=== PATIENT | female | born 1995 | race Caucasian/White ===

== ENCOUNTER 2024-05-10 07:05 | Emergency (ER) | payer MEDICAID, SELFPAY ==
--- NOTE | ~2024-05-10 | XR_ITS ---
EXAMINATION: XR CHEST CLINICAL INFORMATION: dyspnea COMPARISON: None available. TECHNIQUE: Frontal view of the chest was obtained. FINDINGS: No significant abnormality is noted involving the heart, lungs, mediastinum, bony thorax or soft tissues. XR/XR chest 1V IMPRESSION: Normal chest. Electronically signed by: Sudhir Perez MD 05/10/2024 08:16 AM [facility]
[2024-05-10 07:19] VITALS: BP 134/85; PULSE 95; RESP 20; TEMP 36.6; O2SAT 95; BMI 28.9
--- NOTE | 2024-05-10 07:25 | ECG_ITS ---
Test Reason : cp Blood Pressure : */* mmHG Vent. Rate : 89 BPM Atrial Rate : 89 BPM P-R Int : 148 ms QRS Dur : 88 ms QT Int : 368 ms P-R-T Axes : 42 64 42 degrees QTcB Int : 447 ms Normal sinus rhythm with sinus arrhythmia Normal ECG No previous ECGs available Referred By: Generic ED Physician Electronically Signed By: DARSHAN CABALLERO MD
[2024-05-10 07:42] LABS: MANUAL DIFF FLAG NO
[2024-05-10 07:55] LABS: Basophils Absolute Auto 0.1 X10*3/uL (0.0-0.2); Basophils Percent Auto 0.8 % (0-2); Eosinophils Absolute Auto 0.8 X10*3/uL (0.0-0.4); Eosinophils Percent Auto 10.5 % (0-4); Hematocrit 38.6 % (37.0-47.0); Hemoglobin 12.8 g/dl (12.0-16.0); Imm Gran Abs Auto 0.07 X10*3/uL (0.00-0.03); Imm Gran Pct Auto 0.9 % (0.0-0.4); Lymphocytes Absolute Auto 2.4 X10*3/uL (1.2-4.9); Lymphocytes Percent Auto 30.9 % (20-40); Mean Corpuscular HGB Conc 33.2 g/dl (31.0-35.0); Mean Corpuscular Hemoglobin 28.2 pg (27.0-33.0); Mean Platelet Volume 9.7 fL (9.4-12.3); Monocytes Absolute Auto 0.5 X10*3/uL (0.1-1.2); Monocytes Percent Auto 5.9 % (2-11); Platelet Count 387 X10*3/uL (160-400); Red Blood Count 4.54 X10*6/uL (4.20-5.50); White Blood Count 7.8 X10*3/uL (4.8-10.8)
[2024-05-10 08:11] LABS: Alanine Aminotransferase 29 U/L (0-31); Albumin Level 4.3 g/dL (3.5-5.0); Alkaline Phosphatase 77 U/L (39-117); Anion Gap 13 (12-20); Aspartate Amino Transferase 26 U/L (5-31); Bilirubin Direct 0.1 mg/dL (0.0-0.5); Bilirubin Total 0.4 mg/dL (0.0-1.0); Blood Urea Nitrogen 16 mg/dL (9-16); Calcium 9.1 mg/dL (8.4-10.2); Carbon Dioxide 22 mmol/L (22-29); Chloride 108 mmol/L (96-108); Creatinine Clr Calc Pharmacy 135.2; Estimated Glomerular Filt Rate > 60; Glucose Random 90 mg/dL (60-115); Lipase 15 U/L (8-78); Potassium 3.7 mmol/L (3.3-5.1); Sodium 139 mmol/L (135-145); Total Protein 7.6 g/dL (6.5-8.0)
[2024-05-10 08:22] LABS: Troponin-I High Sensitivity < 2.7 ng/L (<3.5-17.0)
[2024-05-10 08:31] LABS: Influenza A PCR NEGATIVE (Negative); Influenza B PCR NEGATIVE (Negative); Resp Syncy Virus RNA Qual PCR NEGATIVE (Negative); SARS COV2 PCR INHOUSE NEGATIVE (Negative)
[2024-05-10] MEDS: Albuterol Sulfate 2.5 MG, Albuterol/Iprat 2.5/0.5MG 3 ML 3 ML INHALE (15:23)
[2024-05-10 15:25] VITALS: PULSE 93; RESP 18; O2SAT 95
[2024-05-10] MEDS: predniSONE 10 MG TABLET 50 MG PO (15:30)
--- NOTE | 2024-05-10 15:32 | ED_ITS ---
HPI - SOB/Dyspnea General Chief Complaint: Dyspnea Stated Complaint: Asthma Diff Breathing Time Seen by Provider: 05/10/24 14:40 Source: patient and RN notes reviewed Mode of arrival: ambulatory Limitations: no limitations History of Present Illness ED Provider: Indy Copeland PA-C HPI Narrative: This is a 28-year-old female, with a history of asthma, who presents emergency department with concerns for shortness of breath and chest tightness for the last 2 days. Patient also endorses some nasal congestion. She denies any recent travel, surgery, hospitalizations, no history of blood clots. She denies any pleuritic chest pain. She states that the chest pain is constant and worsens with movement, and with coughing. She states that she has been using in her her inhaler at home which has provided her with some relief. She is not on control. She is a nonsmoker. Denies any fevers, chills, severe shortness of breath, severe chest pain, lower extremity swelling. Denies any palpitations. Denies any abdominal pain, nausea, vomiting or diarrhea. Denies chance of . No urinary symptoms. No other complaints or concerns at this time. MD elicited complaint: asthma attack Pertinent past history: asthma Timing: constant Severity: moderate Exacerbating factors: nothing Relieving factors: nothing Known history of: asthma Associated symptoms: chest pain, cough and wheezing Related Data Previous Rx's ?Medication ?Instructions ?Recorded prednisone 20 mg tablet 40 mg (2 x 20 mg) PO DAILY 4 days 05/10/24 #8 tabs Allergies Allergy/AdvReac Type Severity Reaction Status Date / Time No Known Allergies Allergy Verified 05/10/24 07:22 Review of Systems 2 Review of Systems: Yes all other systems are reviewed and are negative Constitutional: Constitutional: Reports as per [facility] Social History Social History Advance Directives: No Advance Directives Information Provided: Yes Do you have a plan to hurt others: No Plan Physical Exam 2 Vital Signs: Vital Signs: Last Vital Signs Temp 98.0 F 05/10/24 16:24 Pulse 82 05/10/24 16:24 Resp 12 05/10/24 16:24 BP 128/96 H 05/10/24 16:24 Pulse Ox 97 05/10/24 16:24 O2 Del Method Room Air 05/10/24 16:24 BMI result Body Mass Index 28.9 Const: General: cooperative, comfortable and no acute distress O rientation/consciousness: patient oriented x3 Limitations: no limitations HEENT: Head: Yes normal to inspection, Yes normocephalic and Yes atraumatic Ears: hearing grossly normal bilaterally and TM's normal bilaterally General nose exam: Normal external nose present Face and sinus: Yes normal facial exam Mouth: Normal oral and palatal mucosa present, oropharynx normal and moist mucous membranes Throat: Yes posterior oropharynx normal Eyes: General: appearance normal, both eyes and all related structures E yelids: Yes eyelids normal Conjunctivae: conjunctivae normal Sclerae: s clerae normal Pupils: Equal, round and reactive pupils present EOM: EOMs intact bilaterally Neck: Neck: Yes normal visual inspection, Yes full ROM and Yes no lymphadenopathy Lymphatic: no lymphadenopathy noted Chest: Chest palpation & inspection: normal inspection of the chest Resp: Other: Inspiratory and expiratory wheezes noted, worse in the right lower lung field. No crackles or rales Effort & Inspection: normal respiratory effort and able to speak in complete sentences Cardio: Rate: regular rate Rhythm: regular rhythm Heart sounds: S1 normal heart sound present and S2 normal heart sound present GI: Inspection: Yes normal to inspection Skin: General skin exam: no rashes or lesions noted Trauma: no lacerations or abrasions Wounds: no wounds Neuro: General: patient oriented x3 and moves all extremities Cranial nerves: Yes Equal, round and reactive pupils present Extrem: Other: No lower extremity swelling, no calf tenderness. General: Yes normal to inspection Right upper extremity: normal to inspection Left upper extremity: normal to inspection Right lower extremity: normal to inspection Left lower extremity: normal to inspection Course Reevaluation(s) Reevaluation #1: Patient reassessed, inspiratory and expiratory wheezes cleared however will administer updrafts, and administer prednisone. Will continue to monitor pending symptomatic improvement. Time: 15:34 Reevaluation #2: Patient reassess, she has been eating better after receiving updraft. Lungs clear to auscultation. Vital signs within normal limits. She is speaking full sentences under no acute respiratory distress. Symptoms consistent with acute asthma exacerbation. She does have some nasal congestion, this likely is viral in etiology. Discussed findings with patient. Will discharge on prednisone. Given strict return precautions with teletypesetter operator at bedside. She understands agrees with plan. Patient stable for discharge. Time: 16:55 Medications Administered Discontinued Medications Generic Name Dose Route Start Last Admin Trade Name Mary Ellen PRN Reason Stop Dose Admin Albuterol Sulfate 2.5 mg/ 0 mg 05/10/24 15:20 05/10/24 15:23 Albuterol/Ipratropium 3 ml INHALE 05/10/24 15:21 1 dose ONCE ONE Administration Prednisone 50 mg 05/10/24 14:49 05/10/24 15:30 Prednisone 10 Mg Tablet PO 05/10/24 14:50 50 mg ONCE ONE Administration Medical Decision Making Medical Decision Making [facility] Narrative: This is a 28-year-old female, with a history of asthma, who presents emergency department with complaints of shortness for breath, and chest tightness for the last 2 days. On arrival, vital signs within normal limits. She is speaking in full sentences under no acute distress. Lungs with inspiratory and expiratory wheezes, noted more pronounced in the right lower lung field. Labs were obtained prior to my assessment, she has no leukocytosis, H&H stable. No significant electrolyte derangement. Negative troponin. She tested negative for flu, RSV, and COVID. EKG normal sinus rhythm with no ST elevation or depression. Chest x-ray normal. Given inspiratory and expiratory wheezes, will provide patient with ED bronch protocol, and prednisone 50 mg. She is PERC negative. Differential Diagnosis Differential Diagnoses: The differential diagnosis associated with the presentation includes Asthma exacerbation, COVID, flu, RSV, pneumonia, ACS-unlikely, PE-unlikely Admission/Observation Consideration of admission/observation: Escalation of care including admission/observation considered Lab Data [facility] Lab Attestation statement: I reviewed the patient's lab results. See [facility] 05/10/24 07:37 05/10/24 07:37 Labs: Lab Results 05/10/24 Range/Units 07:37 WBC 7.8 (4.8-10.8) X10*3/uL RBC 4.54 (4.20-5.50) X10*6/uL Hgb 12.8 (12.0-16.0) g/dl Hct 38.6 (37.0-47.0) % MCV 85.0 (80.0-98.0) fL MCH 28.2 (27.0-33.0) pg MCHC 33.2 (31.0-35.0) g/dl RDW 13.0 (11.0-16.0) % Plt Count 387 (160-400) X10*3/uL MPV 9.7 (9.4-12.3) fL Immature Gran % (Auto) 0.9 H (0.0-0.4) % Neut % (Auto) 51.0 (45-73) % Lymph % (Auto) 30.9 (20-40) % Bent % (Auto) 5.9 (2-11) % Eos % (Auto) 10.5 H (0-4) % Baso % (Auto) 0.8 (0-2) % Lymph # (Auto) 2.4 (1.2-4.9) X10*3/uL Bent # (Auto) 0.5 (0.1-1.2) X10*3/uL Eos # (Auto) 0.8 H (0.0-0.4) X10*3/uL Baso # (Auto) 0.1 (0.0-0.2) X10*3/uL Abs Immat Gran (auto) 0.07 H (0.00-0.03) X10*3/uL Absolute Neuts (auto) 4.0 (2.0-8.3) x10*3/uL Absolute Nucleated RBC 0.000 (0.0-0.012) X10*3/uL Nucleated RBC % (auto) 0.0 (0.0-0.2) /100WBC Sodium 139 (135-145) mmol/L Potassium 3.7 (3.3-5.1) mmol/L Chloride 108 (96-108) mmol/L Carbon Dioxide 22 (22-29) mmol/L Anion Gap 13 (12-20) BUN 16 (9-16) mg/dL Creatinine 0.64 (0.5-1.4) mg/dL Estim Creat Clear Calc 135.2 Estimated GFR > 60 Random Glucose 90 (60-115) mg/dL Calcium 9.1 (8.4-10.2) mg/dL Total Bilirubin 0.4 (0.0-1.0) mg/dL Direct Bilirubin 0.1 (0.0-0.5) mg/dL AST 26 (5-31) U/L ALT 29 (0-31) U/L Alkaline Phosphatase 77 (39-117) U/L Troponin I High Sens < 2.7 (<3.5-17.0) ng/L Total Protein 7.6 (6.5-8.0) g/dL Albumin 4.3 (3.5-5.0) g/dL Lipase 15 (8-78) U/L Influenza Type A (PCR) NEGATIVE (Negative) Influenza Type B (PCR) NEGATIVE (Negative) RSV RNA Qual (PCR) NEGATIVE (Negative) SARS-CoV-2 RNA (RT-PCR) NEGATIVE (Negative) Independent Interpretation I performed an independent interpretation of an: EKG Interpretation: EKG normal sinus rhythm with sinus arrhythmia with no ST elevation or depression. Ventricular rate of 89 beats per minute, RI interval 148, QT QTC 368/447. Radiology Impression Discussion of test interpretation with radiology: I have reviewed the radiologist's reading. Radiologist Impression: EXAMINATION: XR CHEST CLINICAL INFORMATION: dyspnea COMPARISON: None available. TECHNIQUE: Frontal view of the chest was obtained. FINDINGS: No significant abnormality is noted involving the heart, lungs, mediastinum, bony thorax or soft tissues. XR/XR chest 1V IMPRESSION: Normal chest. Discharge Plan Discharge Clinical Impression: Asthma with exacerbation Patient Disposition: Home, Self-Care Instructions: Asthma (ED) Additional Instructions: You were seen in the emergency department due to shortness of breath. Your workup today was reassuring. You tested negative for COVID, flu and RSV. You may have something that triggered your asthma or a virus. Your chest x-ray does not show a pneumonia. Please take prescribed prednisone as directed, start this tomorrow as you already received a dose today. Please follow-up with your primary care physician. If any new or worsening symptoms occur including but not limited to severe chest pain, shortness of breath, please seek emergent care. Prescriptions: New prednisone 20 mg tablet 40 mg PO DAILY 4 Days Qty: 8 0RF Rx Instructions: Start 05/11/2024 Stand Alone Forms: Work/School Release Interventions: ED Discharge Assessment Last Done: 05/10/24 16:24 Discharge Date/Time: 05/10/24 16:24 Print Language: Ghanaian
--- OUTSIDE RECORDS SUMMARY | 2024-05-10 16:13 | XMS_ITS | Encounter Summary ---
Author Organization [facility] Address [address] [place] [address] Care Team Providers Care Doctor Osteopathic Name Role Phone Unavailable Primary Care Provider Unavailabl e Reason for Visit * Reason Comments Med Refill Encounter Details Date Type Department Care Team (Late st Contact Info) Description 03/09/2024 Refill [facility] [address] [place] [address] Quinton Raines MD [address] [place] [address] Social History Tobacco Use Types Packs/Day Years Used Date Smoking Tobacco: Never Smokeless Tobacco: Never Comments Unknown Sex and Gender Information Value Date Recorded Sex Assigned at Female 11/25/2023 10:50 AM EDT Legal Sex Female 10:49 AM EDT Gender Identity Female 11/25/2023 10:50 AM EDT Sexual Orientation Straight 11/25/2023 10 :50 AM EDT documented as of this encounter Plan of Treatment Not on file documented as of this encounter Visit Diagnoses Not on filedocumented in this encounter
--- OUTSIDE RECORDS SUMMARY | 2024-05-10 16:13 | XMS_ITS | Clinical Summary ---
Author Organization [employer] Address [address] [place] [address] Care Team Providers Care Traveling Sales Representative Name Role Phone Unavailable Primary Care Provider Unavailabl e Allergies No known active allergies Medications albuterol (2.5 MG/3ML) 0.083% nebulizer solution Take 3 mL (2.5 mg) by nebulization every 6 (six) hours if needed for wheezing or shortness of breath. 75 mL 1 12/10/19 24 025 Active fluticasone (Flonase Allergy Relief) 50 MCG/ACT nasal spray Administer 1 spray into each nostril Once per day. Shake gently. Before first use, prime pump. After use, clean tip and replace cap. 16 g 12 12/10/19 24 025 Active acetaminophen (Tylenol) 500 MG tablet Take 2 tablets (1,000 mg) by mouth every 6 (six) hours if needed for moderate pain or fever for up to 25 doses. 50 tablet 12/10/19 24 Active ibuprofen 400 MG tablet Take 1 tablet (400 mg) by mouth every 6 (six) hours if needed for moderate pain or fever for up to 30 doses. 30 tablet 12/10/19 24 Active Spacer/Aero-Hold ing Chambers (OptiChamber Mel) misc 1 each every 4 (four) hours if needed (asthma). 1 each 12/10/19 24 Active Nebulizer misc The patient was prescribed a nebulizer from the [facility] [place] [employer]. Nebulizer was dispensed in office on 12/10/23. Instructions on how to use the nebulizer were provided. Active albuterol 108 (90 Base) MCG/ACT inhalerIndicatio ns:Moderate persistent asthma with acute exacerbation Inhale 2 puffs every 6 (six) hours if needed for wheezing or shortness of breath. 18 g 11 04/06/19 25 026 Active fluticasone-salm eterol (Advair) 45-21 MCG/ACT inhalerIndicatio ns:Moderate persistent asthma with acute exacerbation Inhale 2 puffs in the morning and at bedtime. Rinse mouth with water after use to reduce aftertaste and incidence of candidiasis. Do not swallow. 12 g 11 04/06/19 25 026 Active predniSONE (Deltasone) 20 MG tabletIndication s:Moderate persistent asthma with acute exacerbation Take 2 tablets (40 mg) by mouth Once per day for 5 days. 10 tablet 04/06/19 25 025 Active Problems No known active problems Encounters Date Type Department Care Team Description 04/06/2024 9:40 AM EST Office Visit [facility] [address] [place] [phone] Julian Cheney MD Moderate persistent asthma with acute exacerbation (Primary Dx) 04/06/2024 Telephone [facility] [address] [place] [phone] Julian Cheney MD New patient appt. 03/30/2024 Telephone [facility] [address] [place] [phone] Vance Carmona MD 03/09/2024 Refill [facility] [address] [place] [phone] Quinton Raines MD from Last 3 Months Social History Tobacco Use Types Packs/Day Years Used Date Smoking Tobacco: Never Smokeless Tobacco: Never Tobacco Cessation:Counseling Given: Not Answered Comments Unknown Sex and Gender Information Value Date Recorded Sex Assigned at Female 11/25/2023 10:50 AM EDT Legal Sex Female 10:49 AM EDT Gender Identity Female 11/25/2023 10:50 AM EDT Sexual Orientation Straight 11/25/2023 10 :50 AM EDT Last Filed Vital Signs Vital Sign Reading Time Taken Comments Blood Pressure 137/82 04/06/2024 9:17 AM EST Pulse 72 04/06/2024 9:17 AM EST Temperature 36.6 ??C (97.8 ??F) 04/06/2024 9:17 AM ES T Respiratory Rate 16 04/06/2024 9:17 AM EST Oxygen Saturation 99% 04/06/2024 9:17 AM EST Inhaled Oxygen Concentration - - Weight 81.6 kg (180 lb) 04/06/2024 9:17 AM EST Height - - Body Mass Index - - Plan of Treatment Health Maintenance Due Date Last Done Comments Depression Screening 1994 HIV Screening 1994 SDOH Screening 1994 Alcohol/Substance Use Screening 2006 Family Planning (PISQ) 2009 Hepatitis C Screening 2012 DTaP/Tdap/Td Vaccines (1 - Tdap) 2013 Hepatitis B Vaccines (1 of 3 - 19+ 3-dose series) 2013 Pneumococcal Vaccine: Pediat rics (0 to 5 Years) and At-Risk Patients (6 to 49) Years) (1 of 2 - PCV) 2013 Pap Smear 06/15/2015 COVID-19 Vaccine ( - 2023-2 5 season) 2023 Influenza Vaccine (#1) 2023 Tobacco Screening 12/09/2024 12/10/2023 Zoster Vaccines (1 of 2) 2044 RSV Patients and Pa tients Aged 60 years or older (1 - 1-dose 75+ series) 2069 HIB Vaccines Aged Out No longer eligi ble based on patient's age to complete this topic HPV Vaccines Aged Out No longer eligi ble based on patient's age to complete this topic Hepatitis A Vaccines Aged Out No long er eligible based on patient's age to complete this topic IPV Vaccines Aged Out No longer eligi ble based on patient's age to complete this topic Meningococcal Vaccine Aged Out No krystyna joan eligible based on patient's age to complete this topic RSV under 20 months Aged Out No longe r eligible based on patient's age to complete this topic Rotavirus Vaccines Aged Out No longer eligible based on patient's age to complete this topic Insurance [employer] [facility] STAND ADULT
[2024-05-10 16:17] VITALS: BP 128/96; PULSE 82; RESP 12; TEMP 36.7; O2SAT 97
[2024-05-10 16:24] VITALS: BP 128/96; PULSE 82; RESP 12; TEMP 36.7; O2SAT 97
== END 2024-05-10 16:24 | disposition home or self-care (01) ==
PROVIDERS: Emergency Provider Emergency Medicine
DX: J45.901 Unspecified asthma with (acute) exacerbation (principal); R07.89 Other chest pain; R06.02 Shortness of breath; R05.9 Cough, unspecified; R09.81 Nasal congestion; I49.8 Other specified cardiac arrhythmias; Z03.818 Encounter for observation for suspected exposure to other biological agents ruled out
CPT/HCPCS: 0241U; 36415; 71045; 80048; 80076; 83690; 84484; 85025; 93005; 94640; 99284

== ENCOUNTER → 2024-05-10 07:25 | Outpatient (BNV) | payer SELFPAY | PROVIDERS: Visit Provider Internal Medicine Cardiovascular Disease | DX: I49.9 Cardiac arrhythmia, unspecified (principal) | CPT/HCPCS: 93010 ==

== ENCOUNTER → 2024-05-10 07:25 | Outpatient (BNV) | payer SELFPAY | PROVIDERS: Visit Provider Radiology Diagnostic Radiology | DX: R06.00 Dyspnea, unspecified (principal) | CPT/HCPCS: 71045 ==

== ENCOUNTER 2024-11-06 08:34 | Outpatient (REF) | payer MEDICAID, OTHER, SELFPAY ==
--- OUTSIDE RECORDS SUMMARY | 2024-11-06 08:52 | XMS_ITS | Clinical Summary ---
Author Organization [facility] Address [address] [place] [address] Phone Care Team Providers Care Regulatory Compliance Officer Name Role Phone Physician, No Pcp Primary Care Provider Unavaila ble Allergies No known active allergies Medications albuterol HFA (PROAIR HFA ; PROVENTIL HFA ; VENTOLIN HFA) 90 mcg/actuation inhaler Inhale 1-2 puffs by mouth every 6 (six) hours if needed for wheezing. 1 each 06/28/2024 Active Social History Tobacco Use Types Packs/Day Years Used Date Smoking Tobacco: Never Assessed Comments Unknown Sex and Gender Information Value Date Recorded Sex Assigned at Female 06/27/2024 11:55 PM EDT Legal Sex Female 10:20 PM EDT Gender Identity Female 06/27/2024 11:55 PM EDT Sexual Orientation Straight 06/27/2024 11 :55 PM EDT Last Filed Vital Signs Vital Sign Reading Time Taken Comments Blood Pressure 139/87 06/27/2024 10:33 PM EDT Pulse 84 06/27/2024 10:33 PM EDT Temperature 36.6 C (97.9 F) 06/27/2024 10:33 PM EDT Respiratory Rate 18 06/27/2024 10:33 PM EDT Oxygen Saturation 100% 06/27/2024 10:33 PM EDT Inhaled Oxygen Concentration - - Weight 70 kg (154 lb 5.2 oz) 06/27/2024 10:33 PM EDT Height 156 cm (5' 1.42 ) 06/27/2024 10:33 PM EDT Body Mass Index 28.76 06/27/2024 10:33 PM EDT Plan of Treatment Health Maintenance Due Date Last Done Comments DTaP,Tdap,and Td Vaccines (1 - Tdap) 2013 Hepatitis B Vaccines (1 of 3 - 19+ 3-dose series) 2013 Pneumococcal Vaccine: Pediat rics (0 to 5 Years) and At-Risk Patients (6 to 49 Years) (1 of 2 - PCV) 2013 Cervical Cancer Screening: P ap Smear 06/15/2015 COVID-19 Vaccine (1 - 2023-2 5 season) 2023 Depression Screening 03/29/2024 HIV Screening 06/28/2024 Hepatitis C Screening 06/28/2024 Social Influencers of Health Screening 06/28/2024 Influenza Vaccine (#1) 2024 HIB Vaccines Aged Out No longer eligi [...] on patient's age to complete this topic MMR Vaccines Aged Out No longer eligi ble based on patient's age to complete this topic Meningococcal ACWY Vaccine Aged Out N o longer eligible based on patient's age to complete this topic Meningococcal B Vaccine Aged Out No l onger eligible based on patient's age to complete this topic RSV Immunization Patients Un zoya 20 months Aged Out No longer eligible b ased on patient's age to complete this topic Varicella Vaccines Aged Out No longer eligible based on patient's age to complete this topic Insurance MEDICAID - [place] Care Teams Regulatory Compliance Officer Relationship Specialty Start Date End Date Physician, No Pcp PCP - General 06/27/24
--- OUTSIDE RECORDS SUMMARY | 2024-11-06 08:52 | XMS_ITS | Encounter Summary ---
Author Organization [employer] Address [address] [facility] [address] [place] [address] Care Team Providers Care Collar Closer Lockstitch Name Role Phone Tessa Reyes MD Primary Care Pro vider Encounter Details Date Type Department Care Team (Late st Contact Info) Description 11/03/2024 Orders Only [facility] [address] [place] [address] Tessa Reyes MD [address] [place] [address] Bloating (Primary Dx) Social History Tobacco Use Types Packs/Day Years Used Date Smoking Tobacco: Never Smokeless Tobacco: Never Comments:Started smoking at 23 y of age and stopped at 28 y of age ,used to smoke 6-7 cif a day ,smoke for 4 years ,stopped 5 months ago Alcohol Use Standard Drinks/Week Comments Not Currently 0 (1 standard drink = 0.6 oz pur e alcohol) Depression Answer Date Recorded Patient Health Questionnaire-9 Score 0 09/06/2024 Patient Health Questionnaire-9 Score 0 09/06/2024 Last PHQ-9: Questionnaire Data Not on file 0 09/06/2024 Housing Stability Answer Date Recorded What is your housing situation today? I have ervin simpson 08/30/[address] you li ve. Do you have problems with any of the following? None of the above 08/30/2024 Food Insecurity Answer Date Recorded Within the past 12 months, y ou worried that your food would run out before you got money to buy more: Never True 08/30/2024 Within the past 12 months,th e food you bought just didn't last and you didn't have enough money to get more: Never True 06/2024 Transportation Answer Date Recorded In the past 12 months, has l ack of transportation kept you from medical appts, meetings, work or from getting things needed for daily living? No 08/30/2024 Utilities Answer Date Recorded In the past 12 months, has t he electric, gas, oil or water company threatened to shut off services in your home? No 08/30/2024 Depression Answer Date Recorded Patient Health Questionnaire-2 Score 0 09/06/2024 Internet Access Answer Date Recorded Internet Access Q1 Yes 08/30/2024 Internet Access Q2 Not on file 08/30/2024 Comments Unknown Sex and Gender Information Value Date Recorded Sex Assigned at Female 11/25/2023 10:50 AM EDT Legal Sex Female 10:49 AM EDT Gender Identity Female 11/25/2023 10:50 AM EDT Sexual Orientation Straight 11/25/2023 10 :50 AM EDT documented as of this encounter Plan of Treatment Upcoming Encounters Date Type Department Care Team (Late st Contact Info) Description 11/06/2024 10:30 AM EDT Procedure Visit [facility] [address] [place] [phone] Candy Germna CNM [address] [place] [phone] 11/09/2024 10:30 AM EDT Office Visit [facility] [address] [place] [phone] Tessa Reyes MD [address] [place] [phone] 11/14/2024 3:00 PM EDT Clinical Support [facility] DIABETES/NUTRITION [address] [place] [phone] [place] [phone] Scheduled Orders Name Type Priority Associated Diagnoses Orde r Schedule Celiac Disease Comprehensive Panel Lab Routine Bloating Expected: 11/03/2024, Expires: 11/03/2025 documented as of this encounter Visit Diagnoses Diagnosis Bloating- Primary Flatulence, eructation, and gas pain Cervical cancer screening- Primary Screening for malignant neoplasm of the cervix documented in this encounter Additional Health Concerns Assessment Noted Time PHQ-9 Depression Total Score: 0 09/07/19 9:21 AM EDT documented as of this encounter Care Teams Collar Closer Lockstitch Relationship Specialty Start Date End Date Tessa Reyes MD [address] [place] [phone] PCP - General Internal Medicine 09/06/24 documented as of this encounter
[2024-11-06 11:35] LABS: Hematocrit 40.3 % (37.0-47.0); Hemoglobin 13.2 g/dl (12.0-16.0); Mean Corpuscular HGB Conc 32.8 g/dl (31.0-35.0); Mean Corpuscular Hemoglobin 28.3 pg (27.0-33.0); Mean Corpuscular Volume 86.3 fL (80.0-98.0); NRBC Abs Auto 0.000 X10*3/uL (0.0-0.012); NRBC Pct Auto 0.0 /100WBC (0.0-0.2); Platelet Count 363 X10*3/uL (160-400); Red Blood Count 4.67 X10*6/uL (4.20-5.50); White Blood Count 7.7 X10*3/uL (4.8-10.8)
[2024-11-06 11:58] LABS: Alanine Aminotransferase 41 U/L (0-31); Albumin Level 4.7 g/dL (3.5-5.0); Alkaline Phosphatase 70 U/L (39-117); Anion Gap 13 (12-20); Aspartate Amino Transferase 44 U/L (5-31); Blood Urea Nitrogen 10 mg/dL (9-16); Calcium 9.2 mg/dL (8.4-10.2); Carbon Dioxide 27 mmol/L (22-29); Chloride 104 mmol/L (96-108); Cholesterol 181 mg/dL (<200); Estimated Glomerular Filt Rate > 60; HDL Cholesterol 37 mg/dL (>40); Potassium 4.0 mmol/L (3.3-5.1); Sodium 140 mmol/L (135-145); Total Protein 7.6 g/dL (6.5-8.0); Triglycerides 134 mg/dL (<150)
[2024-11-06 12:08] LABS: HBS Num1 448.09 mIU/mL (0-7.99); HBc Num1 0.15 S/CO (0.00-0.79); HBsAGNum1 0.43 S/CO (0.00-0.99); HIV Num 1 0.06 S/CO (0.00-0.99); Hepatitis B Surface Antigen Negative (Negative); ~HepC Num1 0.12 S/CO (0.00-0.79); ~Hepatitis B Surface Antibody REACTIVE (Nonreactive); ~Hepatitis C Antibody Nonreactive (Nonreactive)
[2024-11-06 12:09] LABS: Syphilis Screen Nonreactive (Nonreactive)
[2024-11-06 12:26] LABS: Hemoglobin A1C 135.5229 umol/L; Total Hemoglobin (HGBA1C) 3573.3290 umol/L
[2024-11-06 13:07] LABS: CT PCR Urine NOT DETECTED (Not Detect.); NG PCR Urine NOT DETECTED (Not Detect.)
[2024-11-07 11:43] LABS: Rubeola IgG (Measles) <13.50 AU/mL
[2024-11-09 10:19] LABS: TS Negative Control Passed; TS Panel A 0; TS Panel B 0; TS Positive Control Passed; TSpotTB Negative (Negative)
[2024-11-09 22:08] LABS: Immunoglobulin A 157 mg/dL (47-310)
== END 2024-11-06 08:35 | disposition home or self-care (01) ==
LOC: HO.HHCL 08:34
PROVIDERS: PCP Student in an Organized Health Care Education/Training Program; Visit Provider Student in an Organized Health Care Education/Training Program
DX: Z00.00 Encounter for general adult medical examination without abnormal findings (principal); Z11.1 Encounter for screening for respiratory tuberculosis; Z11.59 Encounter for screening for other viral diseases; Z11.3 Encounter for screening for infections with a predominantly sexual mode of transmission; Z11.8 Encounter for screening for other infectious and parasitic diseases; R14.0 Abdominal distension (gaseous); Z11.4 Encounter for screening for human immunodeficiency virus [HIV]
CPT/HCPCS: 36415; 80053; 80061; 82306; 82784; 83036; 84443; 85027; 86364; 86481; 86704; 86706; 86735; 86762; 86765; 86780; 86803; 87340; 87389; 87491; 87591

== ENCOUNTER 2024-11-06 16:38 | Outpatient (REF) | payer MEDICAID, OTHER, SELFPAY | END 2024-11-06 16:39 | disposition home or self-care (01) | LOC: HO.HHCLNP 16:38 | PROVIDERS: Visit Provider Advanced Practice Midwife | DX: Z12.4 Encounter for screening for malignant neoplasm of cervix (principal); Z11.51 Encounter for screening for human papillomavirus (HPV) | CPT/HCPCS: 87626; 88175 ==

== ENCOUNTER 2024-11-23 11:04 | Outpatient (REF) | payer MEDICAID, OTHER, SELFPAY ==
--- NOTE | 2024-11-23 | PFT_ITS ---
Flows: FEV1: 82 % of predicted at 2.71 L FVC: 87 % of predicted at 3.40 L FEV1/FVC: 80 % Bronchodilator response: Present Volumes: Total lung capacity: 80 % of predicted at 4.25 L Residual volume: 71 % of predicted at 0.87 L Slow vital capacity: 82 % of predicted at 3.39 L Expiratory reserve volume: 78 % of predicted at 1.06 L Diffusion capacity: Normal Impression: Reversible moderate obstructive ventilatory defect with positive bronchodilator response. MTDD
[2024-11-23 11:41] VITALS: PULSE 75; O2SAT 100
--- OUTSIDE RECORDS SUMMARY | 2024-11-23 12:25 | XMS_ITS | Clinical Summary ---
Author Organization [facility] Address [address] [place] [address] Phone Care Team Providers Care Sand Caster Name Role Phone Physician, No Pcp Primary [...] to complete this topic Insurance MEDICAID - [place] Care Teams Sand Caster Relationship Specialty Start Date End Date Physician, No Pcp PCP - General 06/27/24
== END 2024-11-23 11:05 | disposition home or self-care (01) ==
LOC: HO.RESP 11:04
PROVIDERS: PCP Student in an Organized Health Care Education/Training Program; Visit Provider Student in an Organized Health Care Education/Training Program
DX: J45.909 Unspecified asthma, uncomplicated (principal)
CPT/HCPCS: 94010; 94640; 94727; 94729

== ENCOUNTER → 2024-11-23 11:09 | Outpatient (BNV) | payer SELFPAY | PROVIDERS: PCP Student in an Organized Health Care Education/Training Program; Visit Provider Internal Medicine Pulmonary Disease | DX: J98.4 Other disorders of lung (principal) | CPT/HCPCS: 94060; 94727; 94729 ==